=== PATIENT | male | born 1980 | race Hispanic/Latino ===

== ENCOUNTER 2019-03-22 11:31 | Outpatient (CLI) | payer BC ==
[2019-03-22 12:12] LABS: Basophils # (Auto) 0.1 K/mm3 (0.0-0.1); Basophils % (Auto) 0.8 % (0.0-1.8); Eosinophils # (Auto) 0.4 K/mm3 (0.0-0.4); Eosinophils % (Auto) 5.3 % (0.0-4.3); Hematocrit 49.3 % (35.5-45.6); Hemoglobin 16.8 gm/dl (11.8-15.2); Lymphocytes # (Auto) 2.3 K/mm3 (1.2-5.4); Lymphocytes % (Auto) 34.1 % (13.4-35.0); Mean Corpuscular HGB Conc 34 % (32-34); Mean Corpuscular Volume 89 fl (84-94); Monocytes # (Auto) 0.5 K/mm3 (0.0-0.8); Platelet Count 283 K/mm3 (140-440); Red Blood Count 5.57 M/mm3 (3.65-5.03); Red Cell Distribution Width 12.8 % (13.2-15.2)
[2019-03-22 12:39] LABS: Alanine Aminotransferase 48 units/L (7-56); Albumin 4.6 g/dL (3.9-5); BUN/Creatinine Ratio 18; Blood Urea Nitrogen 14 mg/dL (9-20); Calcium 9.6 mg/dL (8.4-10.2); Chol/HDL Ratio 4.53 %; HDL Cholesterol 39 mg/dL (40-59); Hemolysis Index 13; LDL Cholesterol,Direct 130 mg/dL (50-130); Uric Acid 7.6 mg/dL (3.5-7.6)
[2019-03-25 14:16] LABS: Vitamin D, 25-OH, D2 <4 ng/mL
== END 2019-03-22 11:32 | disposition home or self-care (01) ==
LOC: LAB 11:31
PROVIDERS: ATTEND Internal Medicine
DX: Z00.00 Encounter for general adult medical examination without abnormal findings (principal); Z13.1 Encounter for screening for diabetes mellitus; Z13.220 Encounter for screening for lipoid disorders; Z13.29 Encounter for screening for other suspected endocrine disorder; Z13.21 Encounter for screening for nutritional disorder
CPT/HCPCS: 36415; 80053; 80061; 82306; 82607; 83036; 84443; 84550; 85025

== ENCOUNTER 2019-10-28 07:18 | Inpatient (IN) | payer BC ==
--- NOTE | 2019-10-28 07:31 | Event Note ---
Date: 10/28/19 EKG presented to me, shows A. fib with rapid ventricular rate. Nursing team informed that this patient needs to come back to the emergency room immediately for immediate treatment.
[2019-10-28] MEDS ORDERED: dilTIAZem 25 MG/5 ML INJ IV ONE ×2 (07:41→07:55)
[2019-10-28] MEDS ORDERED: LACTATED RINGERS 500 ML IV ONE (07:41)
--- NOTE | 2019-10-28 07:49 | Emergency Department Report ---
ED General Adult HPI - General Chief complaint: Chest Pain Stated complaint: CP PUI?: No Time Seen by Provider: 10/28/19 07:34 Source: patient, RN notes reviewed Mode of arrival: Ambulatory Limitations: No Limitations - History of Present Illness Initial comments: Primary care doctor: Dr Jenni Ruth Past medical history: Hypertension The patient is a 39-year-old gentleman who is not known to myself previously. He presents to the ER today with complaints of chest pressure, palpitations, lightheadedness, generalized weakness. On review of systems, the patient endorses a long trip to [place] last week, where he had slurred speech, facial droop, and right arm numbness/weakness. This lasted for a few minutes, was painless, and resolve spontaneously, and he did not seek medical attention at that time. He denies headache, neck pain, abdominal pain, vomiting blood, defecating blood, irritative and obstructive urinary symptoms, recreational drug use, and neurologic symptoms at this time. Chest pressure, palpitations, lightheadedness present since this morning, constant, do not radiate anywhere, and do not have exacerbating or relieving factors. He denies posterior leg pain and leg swelling. The patient was evaluated in the emergency department for symptoms described in the history of present illness. He/she was evaluated in the context of the global COVID-19 pandemic, which necessitated consideration that the patient might be at risk for infection with the virus that causes COVID-19. Institutional protocols and algorithms that pertain to the evaluation of patients at risk for COVID-19 are in a state of rapid change based on information released by regulatory bodies including the CDC and federal and state organizations. These policies and algorithms were followed during the patient's care in the emergency department. Please note that these policies, procedures and recommendations changed on a rapid basis. -: Sudden Location: face, right, upper extremity Radiation: non-radiation Severity scale (0 -10): 0 Consistency: other (Neurologic symptoms now resolved. Palpitations, chest pressure and lightheadedness constant) Improves with: none Worsens with: none Associated Symptoms: denies other symptoms - Related Data Home Medications Medication Instructions Recorded Confirmed Last Taken No Known Home Medications [No 10/29/19 10/29/19 Unknown Reported Home Medications] Allergies Allergy/AdvReac Type Severity Reaction Status Date / Time ascencio Allergy Swelling,IT Unverified 03/22/19 11:32 SARAH Penicillins Allergy Rash Unverified 03/22/19 11:32 ED Review of Systems ROS: Stated complaint: CP Other details as noted in HPI Constitutional: malaise. denies: fever Eyes: denies: eye discharge, vision change ENT: denies: epistaxis Respiratory: denies: cough Cardiovascular: palpitations. denies: orthopnea Gastrointestinal: denies: abdominal pain, hematemesis, melena, hematochezia Genitourinary: denies: dysuria Musculoskeletal: denies: back pain Neurological: weakness, numbness Hematological/Lymphatic: denies: easy bleeding ED Past Medical Hx - Past Medical History Previous Medical History?: No - Surgical History Past Surgical History?: No - Social History Smoking Status: Never Smoker Substance Use Type: None - Medications Home Medications: Home Medications Medication Instructions Recorded Confirmed Last Taken Type No Known Home Medications [No 10/29/19 10/29/19 Unknown History Reported Home Medications] ED Physical Exam - General Limitations: No Limitations General appearance: alert, anxious, obese - Head Head exam: Present: atraumatic, normocephalic - Eye Eye exam: Present: normal appearance, EOMI. Absent: nystagmus - ENT ENT exam: Present: normal exam, normal orophraynx, mucous membranes moist, normal external ear exam - Neck Neck exam: Present: normal inspection, full ROM. Absent: tenderness, meningismus - Respiratory Respiratory exam: Present: normal lung sounds bilaterally. Absent: respiratory distress, wheezes, rales, rhonchi, stridor, decreased breath sounds - Cardiovascular Cardiovascular Exam: Present: tachycardia, irregular rhythm, normal heart sounds. Absent: systolic murmur, diastolic murmur, rubs, gallop - GI/Abdominal GI/Abdominal exam: Present: soft. Absent: distended, tenderness, guarding, rebound, rigid, pulsatile mass - Rectal Rectal exam: Present: deferred - Extremities Exam Extremities exam: Present: normal inspection, full ROM, other (2+ pulses noted in the bilateral upper and lower extremities. There is no palpable cord. negative Homans sign. Muscular compartments are soft. The pelvis is stable.). Absent: pedal edema, calf tenderness - Back Exam Back exam: Present: normal inspection, full ROM. Absent: tenderness, CVA tenderness (R), CVA tenderness (L), paraspinal tenderness, vertebral tenderness - Neurological Exam Neurological exam: Present: alert, oriented X3, normal gait, other (No facial droop. Tongue midline. Extraocular movements intact bilaterally. Facial sensation intact to light touch in V1, V2, V3 distribution bilaterally. 5 and a 5 strength in 4 extremities. Sensation intact to light touch in 4 extremities.). Absent: motor sensory deficit - Psychiatric Psychiatric exam: Present: anxious - Skin Skin exam: Present: warm, dry, intact, normal color. Absent: rash ED Course Vital Signs 10/28/19 10/28/19 10/28/19 07:31 07:38 07:42 Temperature 98.1 F Pulse Rate 157 H 165 H Respiratory 18 23 18 Rate Blood Pressure Blood Pressure 109/83 [Right] O2 Sat by Pulse 98 95 Oximetry 10/28/19 10/28/19 10/28/19 08:00 08:40 09:00 Temperature Pulse Rate 87 91 H Respiratory 15 17 Rate Blood Pressure 105/77 105/77 105/77 Blood Pressure [Right] O2 Sat by Pulse 97 98 96 Oximetry 10/28/19 10/28/19 10/28/19 09:30 10:00 10:30 Temperature Pulse Rate 90 87 102 H Respiratory 12 18 13 Rate Blood Pressure 105/77 105/77 124/76 Blood Pressure [Right] O2 Sat by Pulse 97 97 98 Oximetry 10/28/19 10/28/19 10/28/19 11:02 11:30 12:00 Temperature Pulse Rate 104 H 109 H 116 H Respiratory 13 13 17 Rate Blood Pressure 124/76 124/76 127/85 Blood Pressure [Right] O2 Sat by Pulse 95 95 98 Oximetry 10/28/19 10/28/19 10/28/19 12:30 13:00 13:30 Temperature Pulse Rate 101 H 90 83 Respiratory 13 20 17 Rate Blood Pressure 120/80 120/80 120/80 Blood Pressure [Right] O2 Sat by Pulse 98 98 97 Oximetry 10/28/19 10/28/19 10/28/19 14:00 14:30 16:06 Temperature Pulse Rate 98 H 81 116 H Respiratory 21 18 17 Rate Blood Pressure 120/80 120/80 120/80 Blood Pressure [Right] O2 Sat by Pulse 95 95 96 Oximetry 10/28/19 10/28/19 10/28/19 16:12 16:30 17:00 Temperature Pulse Rate 117 H 111 H 125 H Respiratory 18 22 Rate Blood Pressure 131/84 131/84 Blood Pressure [Right] O2 Sat by Pulse 97 97 Oximetry 10/28/19 10/28/19 10/28/19 17:30 17:40 17:50 Temperature Pulse Rate 102 H 98 H 104 H Respiratory 19 18 19 Rate Blood Pressure 150/118 150/118 150/118 Blood Pressure [Right] O2 Sat by Pulse 97 96 95 Oximetry 10/28/19 10/28/19 10/28/19 18:00 18:10 18:20 Temperature Pulse Rate 75 90 91 H Respiratory 15 17 16 Rate Blood Pressure 150/118 150/118 150/118 Blood Pressure [Right] O2 Sat by Pulse 97 96 95 Oximetry 10/28/19 10/28/19 10/28/19 18:30 18:40 18:50 Temperature Pulse Rate 86 85 96 H Respiratory 18 23 19 Rate Blood Pressure 150/118 150/118 150/118 Blood Pressure [Right] O2 Sat by Pulse 97 97 94 Oximetry 10/28/19 10/28/19 10/28/19 19:00 19:10 19:20 Temperature Pulse Rate 95 H 75 97 H Respiratory 15 14 13 Rate Blood Pressure 150/118 150/118 150/118 Blood Pressure [Right] O2 Sat by Pulse 93 97 97 Oximetry 10/28/19 10/28/19 10/28/19 19:30 19:40 19:50 Temperature Pulse Rate 90 112 H 121 H Respiratory 14 18 17 Rate Blood Pressure 150/118 150/118 150/118 Blood Pressure [Right] O2 Sat by Pulse 98 96 98 Oximetry 10/28/19 10/28/19 10/28/19 20:00 20:10 20:20 Temperature Pulse Rate 109 H 115 H 130 H Respiratory 18 14 14 Rate Blood Pressure 150/118 140/32 140/32 Blood Pressure [Right] O2 Sat by Pulse 97 98 97 Oximetry 10/28/19 10/28/19 10/28/19 20:30 20:38 20:40 Temperature Pulse Rate 122 H 126 H 128 H Respiratory 16 24 Rate Blood Pressure 140/32 110/75 97/60 Blood Pressure [Right] O2 Sat by Pulse 96 Oximetry 10/28/19 10/28/19 10/28/19 20:50 21:00 21:10 Temperature Pulse Rate 118 H 89 75 Respiratory 24 22 14 Rate Blood Pressure 97/60 97/60 97/60 Blood Pressure [Right] O2 Sat by Pulse 94 95 96 Oximetry 10/28/19 10/28/19 10/28/19 21:20 21:30 21:40 Temperature Pulse Rate 79 69 80 Respiratory 21 20 13 Rate Blood Pressure 97/60 97/60 97/60 Blood Pressure [Right] O2 Sat by Pulse 97 96 98 Oximetry - Reevaluation(s) Reevaluation #1: 10/28/19 07:47 Differential diagnosis, including not limited to: A. fib with RVR, electrolyte derangement, thyroid derangement, structural cardiac disease, pulmonary embolism, TIA Assessment and plan: 39-year-old gentleman presenting with A. fib and RVR. He i s afebrile with reassuring vital signs with the exception of tachycardia. He is mentating appropriately, not diaphoretic, and has an appropriate blood pressure. He does not have crushing or intolerable substernal chest pain. Therefore, he is an acceptable candidate for intravenous diltiazem. In addition, he describes a transient ischemic attack last week. At the moment, his NIH score is 0, he has a GCS of 15, and his examination is not consistent with a large vessel occlusion. Therefore, CT angiogram head and neck not indicated. However, he does endorse a long road trip to [place] last week, therefore, we will send d-dimer to risk stratify for pulmonary embolism, although he is not hypoxic or especially tachypneic. Swallow screen ordered, CT scan of the brain ordered, appropriate laboratory studies ordered. If no intracranial hemorrhage noted, he will be started on systemic anticoagulation. He will require admission to the hospital. I discussed this plan of care with the patient, who verbalized understanding, and who is amenable to this plan of care. We will also discuss with cardiology on-call Reevaluation #2: 10/28/19 07:56 Patient given 20 mg of diltiazem intravenously with myself present at the bedside. Heart rate decreased to 110 through 130 bpm. An additional 10 mg of diltiazem was administered, heart rate decreased to 105 bpm through 116 bpm. Additional 10 mg of diltiazem given, total cumulative dose at this time 40 mg intravenous, heart rate now in the 70s to 80s, blood pressure stable, patient endorses improvement. Oral diltiazem is ordered. Reevaluation #3: 10/28/19 08:54 Heart rate in the 90s at this time. Still in A. fib. CT scan of the brain negative to my view/interpretation, formal radiology interpretation is pending. Patient updated on plan of care. Laboratory studies reviewed and appreciated. Cardiology consultation is pending. Hospital physician, Dr. Jeffry Rudolph to admit Reevaluation #4: 10/28/19 09:43 CT scan of the brain is negative for acute findings. - Consultations Consultation #1: 10/28/19 09:55 Discussed history, physical, pertinent laboratory studies, radiology studies and CT scan findings with cardiology on-call, Dr. Mabry, they will follow in consultation. ED Medical Decision Making - Lab Data Result diagrams: 10/31/19 07:39 10/31/19 07:39 Vital Signs 10/28/19 10/28/19 07:31 07:38 Temperature 98.1 F Pulse Rate 157 H 165 H Respiratory 18 23 Rate Blood Pressure 109/83 [Right] O2 Sat by Pulse 98 Oximetry Labs 10/28/19 07:41 WBC 7.4 RBC 5.50 H Hgb 16.5 H Hct 48.6 H MCV 88 MCH 30 MCHC 34 RDW 13.2 Plt Count 279 Lymph % (Auto) 35.8 H [place] % (Auto) 9.6 H Eos % (Auto) 5.9 H Baso % (Auto) 1.1 Lymph # 2.7 [place] # 0.7 Eos # 0.4 Baso # 0.1 Seg Neutrophils % 47.6 Seg Neutrophils # 3.5 - EKG Data -: EKG Interpreted by Sc Rate: tachycardia - EKG Data When compared to previous EKG there are: previous EKG unavailable 10/28/19 07:47 EKG shows A. fib, RVR, 157 bpm, normal axis, QTC prolonged, high left ventricular voltage, abnormal EKG, not a STEMI, no prior for comparison - Radiology Data Radiology results: pending, report reviewed, image reviewed Print Report Referring Physician: TOMI CROUCH Patient Name: TARYN STEWARD Date of : 1980 Sex: Male Report Date: 2019-10-28 Report Status: Finalized Findings [facility] [address] [place] [address] XRay Report Signed Patient: TARYN STEWARD MR#: [id number] : 1980 Acct:[id number] Age/Sex: 39 / M ADM Date: 10/28/19 Loc: ED Attending Dr: Ordering Physician: TOMI CROUCH MD Date of Service: 10/28/19 Procedure(s): XR chest 1V ap Accession Number(s): [id number] cc: TOMI CROUCH MD Fluoro Time In Minutes: CHEST 1 VIEW INDICATION / CLINICAL INFORMATION: Chest Pain. COMPARISON: None available. FINDINGS: SUPPORT DEVICES: None. HEART / MEDIASTINUM: No significant abnormality. LUNGS / PLEURA: No significant pulmonary or pleural abnormality. No pneumothorax. ADDITIONAL FINDINGS: No significant additional findings. IMPRESSION: No acute pulmonary or pleural abnormality Signer Name: Grant Jett MD FACR Signed: 10/28/2019 7:53 AM Workstation Name: [id number] Transcribed By: MS Dictated By: Grant Jett MD Electronically Authenticated By: Grant Jett MD Signed Date/Time: 10/28/19752 DD/ 2 TD/TT: Critical Care Time: Yes Critical care time in (mins) excluding proc time.: 35 Critical care attestation.: If time is entered above; I have spent that time in minutes in the direct care of this critically ill patient, excluding procedure time. ED Disposition Clinical Impression: TIA (transient ischemic attack), Atrial fibrillation with rapid ventricular response Disposition: OP ADMIT IP TO THIS HOSP Is pt being admited?: Yes Condition: Serious
--- NOTE | 2019-10-28 07:58 | XRay Report ---
CHEST 1 VIEW INDICATION / CLINICAL INFORMATION: Chest Pain. COMPARISON: None available. FINDINGS: SUPPORT DEVICES: None. HEART / MEDIASTINUM: No significant abnormality. LUNGS / PLEURA: No significant pulmonary or pleural abnormality. No pneumothorax. ADDITIONAL FINDINGS: No significant additional findings. IMPRESSION: No acute pulmonary or pleural abnormality Signer Name: Grant Jett MD FACR Signed: 10/28/2019 7:53 AM Workstation Name: [id number]
[2019-10-28] MEDS: dilTIAZem 30 MG TAB PO ONE ×2 (07:59→08:11)
[2019-10-28 08:06] LABS: Basophils # (Auto) 0.1 K/mm3 (0.0-0.1); Basophils % (Auto) 1.1 % (0.0-1.8); Eosinophils # (Auto) 0.4 K/mm3 (0.0-0.4); Eosinophils % (Auto) 5.9 % (0.0-4.3); Hematocrit 48.6 % (35.5-45.6); Hemoglobin 16.5 gm/dl (11.8-15.2); Lymphocytes # (Auto) 2.7 K/mm3 (1.2-5.4); Lymphocytes % (Auto) 35.8 % (13.4-35.0); Mean Corpuscular HGB Conc 34 % (32-34); Mean Corpuscular Volume 88 fl (84-94); Monocytes # (Auto) 0.7 K/mm3 (0.0-0.8); Monocytes % (Auto) 9.6 % (0.0-7.3); Platelet Count 279 K/mm3 (140-440); Red Cell Distribution Width 13.2 % (13.2-15.2)
[2019-10-28 08:17] LABS: INR 0.98 (0.87-1.13)
[2019-10-28 08:18] LABS: Partial Thromboplastin Time 27.8 Sec. (24.2-36.6)
[2019-10-28 08:31] LABS: BUN/Creatinine Ratio 18; Blood Urea Nitrogen 14 mg/dL (9-20); Calcium 9.2 mg/dL (8.4-10.2); Hemolysis Index 9
--- NOTE | 2019-10-28 08:57 | Cat Scan Report ---
NONENHANCED CT SCAN OF THE HEAD: INDICATION / CLINICAL INFORMATION: 39 years Male; tia. TECHNIQUE: Routine CT head without contrast. All CT scans at this location are performed using CT dos e reduction for ALARA by means of automated exposure control. COMPARISON: None. FINDINGS: BRAIN / INTRACRANIAL CONTENTS: No acute hemorrhage, mass effect, midline shift, hydrocephalus, or acu te, large territorial infarct. No chronic infarct or focal atrophy. Normal brain volume and ventricul ar/sulcal size for age. No significant white matter abnormality. CRANIOCERVICAL JUNCTION: No significant abnormality. ORBITS: No significant abnormality of visualized orbits. SINUSES / MASTOIDS: No significant abnormality of the visualized paranasal sinuses or mastoid air luz ls. ADDITIONAL FINDINGS: None. IMPRESSION: Normal nonenhanced CT scan of the brain. Signer Name: Gabbi Whitehead MD Signed: 10/28/2019 8:53 AM Workstation Name: [id number]
[2019-10-28] MEDS ORDERED: ENOXAPARIN 100 MG/1 ML INJ SUB-Q STA (09:43)
[2019-10-28] MEDS ORDERED: ACETAMINOPHEN 325 MG TAB PO PRN (09:51)
[2019-10-28] MEDS ORDERED: ACETAMINOPHEN 325 MG TAB ONE (09:56)
--- NOTE | 2019-10-28 10:57 | Consultation ---
History of Present Illness Consult date: 10/28/19 Requesting physician: TOMI CROUCH Consult reason: atrial fibrillation History of present illness: The patient is a 39-year-old male with a past medical history of HTN. He is previously unknown to our practice. His PCP is Dr Jenni Ruth. He presented with c/o chest pressure, palpitations, lightheadedness, generalized weakness since this morning. The patient also reports a long trip to [place] last week, where he had slurred speech, facial droop, and right arm numbness/weakness. This lasted for a few minutes, was painless, and resolve spontaneously, and he did not seek medical attention at that time. Following arrival to ED, pt found to be in atrial fibrillation and thus cardiology has been consulted. Pt denies any prior known cardiac issues, including CAD, AMI, HF or arrhythmia. Past History Past Medical History: hypertension Social history: denies: smoking, alcohol abuse, prescription drug abuse Medications and Allergies Allergies Allergy/AdvReac Type Severity Reaction Status Date / Time ascencio Allergy Swelling,IT Unverified 03/22/19 11:32 SARAH Penicillins Allergy Rash Unverified 03/22/19 11:32 Active Meds: Active Medications Acetaminophen (Tylenol) 650 mg PO Q6HR PRN PRN Reason: PAIN Last Admin: 10/28/19 09:56 Dose: 650 mg Documented by: Enoxaparin Sodium (Enoxaparin) 130 mg SUB-Q ONCE ONE Stop: 10/28/19 11:01 Review of Systems Constitutional: weakness, no weight loss, no weight gain, no fever, no chills, no sweats Ears, nose, mouth and throat: no ear pain, no nose pain, no sinus pressure, no sinus pain Cardiovascular: chest pain, palpitations, lightheadedness, high blood pressure, no orthopnea, no edema, no syncope, no shortness of breath, no dyspnea on exertion, no leg edema Respiratory: no cough, no shortness of breath, no dyspnea on exertion, no congestion, no wheezing, no pain on inspiration Gastrointestinal: no abdominal pain, no nausea, no vomiting, no diarrhea, no co nstipation, no change in bowel habits Genitourinary Male: no dysuria, no hematuria, no flank pain, no discharge, no urinary frequency, no urinary hesitancy Musculoskeletal: no neck stiffness, no neck pain, no shooting arm pain, no arm numbness/tingling, no low back pain, no shooting leg pain Integumentary: no rash, no pruritis, no redness, no sores, no wounds Neurological: weakness (generalized), no head injury, no paralysis, no seizures, no syncope Psychiatric: no anxiety Endocrine: no cold intolerance, no heat intolerance Hematologic/Lymphatic: no easy bruising, no easy bleeding Allergic/Immunologic: no urticaria Physical Examination Vital Signs Temp Pulse Resp BP 98.1 F 157 H 18 109/83 10/28/19 07:31 10/28/19 07:31 10/28/19 07:31 10/28/19 07:31 General appearance: no acute distress HEENT: Positive: PERRL, Normocephaly, Mucus Membranes Moist Neck: Positive: neck supple, trachea midline Cardiac: Positive: irregularly irregular, S1/S2 Lungs: Positive: Decreased Breath Sounds Neuro: Positive: Grossly Intact Abdomen: Negative: Tender Skin: Negative: Rash Musculoskeletal: No Pain Extremities: Absent: edema Results 10/28/19 07:41 10/28/19 07:41 Coagulation 10/28/19 Range/Units 07:41 PT 13.1 (12.2-14.9) Sec. INR 0.98 (0.87-1.13) APTT 27.8 (24.2-36.6) Sec. CBC 10/28/19 Range/Units 07:41 WBC 7.4 (4.5-11.0) K/mm3 RBC 5.50 H (3.65-5.03) M/mm3 Hgb 16.5 H (11.8-15.2) gm/dl Hct 48.6 H (35.5-45.6) % Plt Count 279 (140-440) K/mm3 Lymph # 2.7 (1.2-5.4) K/mm3 Power # 0.7 (0.0-0.8) K/mm3 Eos # 0.4 (0.0-0.4) K/mm3 Baso # 0.1 (0.0-0.1) K/mm3 Comprehensive Metabolic Panel 10/28/19 Range/Units 07:41 Sodium 139 (137-145) mmol/L Potassium 4.3 (3.6-5.0) mmol/L Chloride 106.4 (98-107) mmol/L Carbon Dioxide 19 L (22-30) mmol/L BUN 14 (9-20) mg/dL Creatinine 0.8 (0.8-1.3) mg/dL Glucose 129 H (75-100) mg/dL Calcium 9.2 (8.4-10.2) mg/dL - Imaging and Cardiology Echo: pending EKG: report reviewed, image reviewed EKG interpretations - Telemetry EKG Rhythm: Atrial Fibrillation - EKG Supraventricular dysrhythmia: atrial fibrillation Assessment and Plan Pt noted to be in new onset AFib with RVR, he was given IV cardizem and currently has HR WNL. Initiate PO cardizem and cont full dosage lovenox BID. Plan for conversion to NOAC prior to discharge. Obtain echo. Cont to monitor closely on telemetry. Pt does report intermittent snoring, suspect NGHIA. Recommend OP sleep study. Will follow. The patient has been seen in conjunction with Dr. Nayana Mabry who agrees with the assessment and plan of care. - Patient Problems (1) Atrial fibrillation with rapid ventricular response Current Visit: Yes Status: Acute (2) TIA (transient ischemic attack) Current Visit: Yes Status: Acute Plan to address problem: head CT NAF (3) HTN (hypertension) Current Visit: Yes Status: Chronic (4) Sleep apnea Current Visit: Yes Status: Suspected
[2019-10-28] MEDS ORDERED: ENOXAPARIN 150 MG/1 ML INJ SUB-Q ONE (11:00)
[2019-10-28] MEDS ORDERED: METOCLOPRAMIDE 10 MG/2 ML INJ ONE (12:27)
[2019-10-28] MEDS ORDERED: diphenhydrAMINE 50 MG/ML VIAL ONE (12:27)
[2019-10-28] MEDS ORDERED: dilTIAZem 30 MG TAB ONE ×2 (16:09→20:36)
[2019-10-28] MEDS: dilTIAZem 60 MG TAB PO SCH ×2 (16:12→20:38)
--- NOTE | 2019-10-28 16:23 | History and Physical Report ---
History of Present Illness Date of examination: 10/28/19 Date of admission: 10/28/19 08:55 Chief complaint: Chest pressure and palpitation since a.m. History of present illness: 39-year-old male with history of hypertension comes in for chest pressure palpitations lightheadedness and generalized weakness. This is been going on for since a.m. Patient also had slurred speech facial droop and right arm numbness but no weakness week ago when he went to [place]. Review seek any medical attention. No diaphoresis. No shortness of breath. Chest pressure is about 4 on a scale of 1-10. No radiation. No prior episodes of chest pressure. No exposure to coronavirus. - Past Medical History Htn - Surgical History Past Surgical History?: No - Social History Smoking Status: Never Smoker Substance Use Type: None Family history Htn Review of Systems ROS: Stated complaint: CP Other details as noted in HPI Constitutional: malaise. denies: fever Eyes: denies: eye discharge, vision change ENT: denies: epistaxis Respiratory: denies: cough Cardiovascular: palpitations. denies: orthopnea Gastrointestinal: denies: abdominal pain, hematemesis, melena, hematochezia Genitourinary: denies: dysuria Musculoskeletal: denies: back pain Neurological: weakness, numbness Hematological/Lymphatic: denies: easy bleeding Past History Past Medical History: hypertension Social history: denies: smoking, alcohol abuse, prescription drug abuse Medications and Allergies Allergies Allergy/AdvReac Type Severity Reaction Status Date / Time ascencio Allergy Swelling,IT Unverified 03/22/19 11:32 SARAH Penicillins Allergy Rash Unverified 03/22/19 11:32 Home Medications Medication Instructions Recorded Confirmed Last Taken Type No Known Home Medications [No 10/29/19 10/29/19 Unknown History Reported Home Medications] Active Meds: Active Medications Acetaminophen (Tylenol) 650 mg PO Q6HR PRN PRN Reason: PAIN Last Admin: 10/28/19 09:56 Dose: 650 mg Documented by: Diltiazem HCl (Cardizem) 60 mg PO TID FILOMENA Enoxaparin Sodium (Enoxaparin) 100 mg SUB-Q Q12HR [facility] Exam - Constitutional Vitals: Temp Pulse Resp BP Pulse Ox 98.1 F 81 18 120/80 95 10/28/19 07:31 10/28/19 14:30 10/28/19 14:30 10/28/19 14:30 10/28/19 14:30 General appearance: Present: mild distress, well-nourished - EENT Eyes: Present: PERRL ENT: hearing intact, clear oral mucosa - Neck Neck: Present: supple, normal ROM - Respiratory Respiratory effort: normal Respiratory: bilateral: CTA - Cardiovascular Heart rate: 152 Rhythm: irregularly irregular Heart Sounds: Present: S1 & S2. Absent: rub, click - Extremities Extremities: no ischemia, pulses symmetrical, No edema Peripheral Pulses: within normal limits - Abdominal General gastrointestinal: Present: soft, non-tender, non-distended, normal bowel sounds Male genitourinary: Present: normal - Integumentary Integumentary: Present: clear, warm, dry - Musculoskeletal Musculoskeletal: gait normal, strength equal bilaterally - Psychiatric Psychiatric: appropriate mood/affect, intact judgment & insight - Neurologic Neurologic: CNII-XII intact, moves all extremities - Allied Health Allied health notes reviewed: nursing, case management HEART Score - HEART Score Troponin: Troponin T < 0.010 ng/mL (0.00-0.029) 10/28/19 07:41 Results - Labs CBC & Chem 7: 10/28/19 07:41 10/28/19 07:41 Labs: Laboratory Last Values WBC 7.4 K/mm3 (4.5-11.0) 10/28/19 07:41 RBC 5.50 M/mm3 (3.65-5.03) H 10/28/19 07:41 Hgb 16.5 gm/dl (11.8-15.2) H 10/28/19 07:41 Hct 48.6 % (35.5-45.6) H 10/28/19 07:41 MCV 88 fl (84-94) 10/28/19 07:41 MCH 30 pg (28-32) 10/28/19 07:41 MCHC 34 % (32-34) 10/28/19 07:41 RDW 13.2 % (13.2-15.2) 10/28/19 07:41 Plt Count 279 K/mm3 (140-440) 10/28/19 07:41 Lymph % (Auto) 35.8 % (13.4-35.0) H 10/28/19 07:41 [place] % (Auto) 9.6 % (0.0-7.3) H 10/28/19 07:41 Eos % (Auto) 5.9 % (0.0-4.3) H 10/28/19 07:41 Baso % (Auto) 1.1 % (0.0-1.8) 10/28/19 07:41 Lymph # 2.7 K/mm3 (1.2-5.4) 10/28/19 07:41 [place] # 0.7 K/mm3 (0.0-0.8) 10/28/19 07:41 Eos # 0.4 K/mm3 (0.0-0.4) 10/28/19 07:41 Baso # 0.1 K/mm3 (0.0-0.1) 10/28/19 07:41 Seg Neutrophils % 47.6 % (40.0-70.0) 10/28/19 07:41 Seg Neutrophils # 3.5 K/mm3 (1.8-7.7) 10/28/19 07:41 PT 13.1 Sec. (12.2-14.9) 10/28/19 07:41 INR 0.98 (0.87-1.13) 10/28/19 07:41 APTT 27.8 Sec. (24.2-36.6) 10/28/19 07:41 D-Dimer 135.00 ng/mlDDU (0-234) 10/28/19 07:41 Sodium 139 mmol/L (137-145) 10/28/19 07:41 Potassium 4.3 mmol/L (3.6-5.0) 10/28/19 07:41 Chloride 106.4 mmol/L (98-107) 10/28/19 07:41 Carbon Dioxide 19 mmol/L (22-30) L 10/28/19 07:41 Anion Gap 18 mmol/L 10/28/19 07:41 BUN 14 mg/dL (9-20) 10/28/19 07:41 Creatinine 0.8 mg/dL (0.8-1.3) 10/28/19 07:41 Estimated GFR > 60 ml/min 10/28/19 07:41 BUN/Creatinine Ratio 18 % 10/28/19 07:41 Glucose 129 mg/dL (75-100) H 10/28/19 07:41 Calcium 9.2 mg/dL (8.4-10.2) 10/28/19 07:41 Magnesium 2.40 mg/dL (1.7-2.3) H 10/28/19 07:41 Total Creatine Kinase 112 units/L (55-170) 10/28/19 07:41 Troponin T < 0.010 ng/mL (0.00-0.029) 10/28/19 07:41 TSH 2.470 mlU/mL (0.270-4.200) 10/28/19 07:41 Short CBC 10/28/19 Range/Units 07:41 WBC 7.4 (4.5-11.0) K/mm3 Hgb 16.5 H (11.8-15.2) gm/dl Hct 48.6 H (35.5-45.6) % Plt Count 279 (140-440) K/mm3 [facility] 10/28/19 07:41 Sodium 139 Potassium 4.3 Chloride 106.4 Carbon Dioxide 19 L BUN 14 Creatinine 0.8 Glucose 129 H Calcium 9.2 Cardiac Enzymes 10/28/19 10/28/19 Range/Units 07:41 07:41 Total Creatine Kinase 112 (55-170) units/L Troponin T < 0.010 (0.00-0.029) ng/mL Short CBC 10/28/19 10/29/19 Range/Units 07:41 06:56 WBC 7.4 5.4 (4.5-11.0) K/mm3 Hgb 16.5 H 15.8 H (11.8-15.2) gm/dl Hct 48.6 H 46.3 H (35.5-45.6) % Plt Count 279 238 (140-440) K/mm3 [facility] 10/28/19 07:41 Sodium 139 Potassium 4.3 Chloride 106.4 Carbon Dioxide 19 L BUN 14 Creatinine 0.8 Glucose 129 H Calcium 9.2 Cardiac Enzymes 10/28/19 10/28/19 10/29/19 Range/Units 07:41 07:41 00:11 Total Creatine Kinase 112 (55-170) units/L Troponin T < 0.010 < 0.010 (0.00-0.029) ng/mL - Imaging and Cardiology EKG: report reviewed (A. fib with the RVR heart rate of 150/min) Marie/IV: IV Catheter Type [Right INT / Saline Lock Antecubital] Assessment and Plan Advance Directives: Yes (Full code) VTE prophylaxis?: Chemical Plan of care discussed with patient/family: Yes - Patient Problems (1) Atrial fibrillation with rapid ventricular response Current Visit: Yes Status: Acute Plan to address problem: Patient initiated on IV Cardizem bolus and p.o. Cardizem Heart rate is coming down Echocardiogram ordered Lovenox at 130 mg subcu every 12 started by cardiology (2) Chest pressure Current Visit: Yes Status: Acute Plan to address problem: Chest pain work-up Serial troponins Lexiscan in a.m. (3) HTN (hypertension) Current Visit: Yes Status: Chronic Qualifiers: Hypertension type: essential hypertension Qualified Code(s): I10 - Essential (primary) hypertension Plan to address problem: Continue diltiazem 60 mg every 8 (4) TIA (transient ischemic attack) Current Visit: Yes Status: Acute Plan to address problem: By history TIA 1 week ago which has resolved MRI and carotid duplex scan ordered Echocardiogram was ordered by cardiology for the atrial fibrillation (5) DVT prophylaxis Current Visit: Yes Status: Acute Plan to address problem: On Lovenox and GI prophylaxis
[2019-10-28] MEDS ORDERED: SODIUM CHLORIDE 0.9% 1000 ML 1,000 ML IV ONE (20:51)
[2019-10-28] MEDS ORDERED: SODIUM CHLORIDE 0.9% 1000 ML 1,000 ML ONE (20:53)
[2019-10-28] MEDS ORDERED: METOCLOPRAMIDE 10 MG/2 ML INJ IV PRN (20:55)
[2019-10-28] MEDS ORDERED: ONDANSETRON 4 MG/2 ML INJ IV PRN (20:55)
[2019-10-28] MEDS ORDERED: D5W/0.9% NACL 1,000 ML IV SCH (21:00)
[2019-10-28] MEDS: FAMOTIDINE 20 MG TAB PO SCH (22:05)
[2019-10-28] MEDS: oxyCODONE /ACETAMINOPHEN 5-325MG TAB PO PRN (22:05)
[2019-10-28] MEDS: ENOXAPARIN 100 MG/1 ML INJ SUB-Q SCH (22:05)
[2019-10-29 07:36] LABS: Basophils # (Auto) 0.1 K/mm3 (0.0-0.1); Basophils % (Auto) 1.1 % (0.0-1.8); Eosinophils # (Auto) 0.3 K/mm3 (0.0-0.4); Eosinophils % (Auto) 5.8 % (0.0-4.3); Hematocrit 46.3 % (35.5-45.6); Hemoglobin 15.8 gm/dl (11.8-15.2); Lymphocytes # (Auto) 2.3 K/mm3 (1.2-5.4); Lymphocytes % (Auto) 41.8 % (13.4-35.0); Mean Corpuscular HGB Conc 34 % (32-34); Mean Corpuscular Volume 90 fl (84-94); Monocytes # (Auto) 0.5 K/mm3 (0.0-0.8); Monocytes % (Auto) 8.7 % (0.0-7.3); Platelet Count 238 K/mm3 (140-440); Red Blood Count 5.16 M/mm3 (3.65-5.03)
[2019-10-29 08:00] LABS: Alanine Aminotransferase 42 units/L (7-56); Albumin 3.8 g/dL (3.9-5); BUN/Creatinine Ratio 18; Blood Urea Nitrogen 16 mg/dL (9-20); Calcium 8.7 mg/dL (8.4-10.2); Hemolysis Index 27
[2019-10-29] MEDS ORDERED: REGADENOSON 0.4 MG/5 ML INJ IV ONE ×2 (08:09→08:12)
--- NOTE | 2019-10-29 08:35 | Treadmill Report ---
LEXISCAN STRESS TEST REPORT REASON FOR STUDY: Chest pain. STRESS TEST PROTOCOL: The patient received 0.4 mg of Lexiscan intravenously over 10 seconds. Tc-99m Tetrofosmin was subsequently injected. Baseline ECG: normal sinus rhythm. Lexiscan ECG: no ischemic changes. No chest pain. No arrhythmias. IMPRESSION: Electrocardiographically negative stress test. Nuclear imaging report to follow. JOB# [id number] ABY/MARLENA PAYTON
[2019-10-29] MEDS: dilTIAZem 60 MG TAB PO SCH ×3 (09:15→21:41)
[2019-10-29] MEDS: FAMOTIDINE 20 MG TAB PO SCH ×2 (09:15→21:42)
[2019-10-29] MEDS: ENOXAPARIN 100 MG/1 ML INJ SUB-Q SCH ×2 (09:15→21:42)
[2019-10-29] MEDS: oxyCODONE /ACETAMINOPHEN 5-325MG TAB PO PRN ×2 (09:25→21:54)
--- NOTE | 2019-10-29 10:07 | Progress Note ---
Assessment and Plan Echo reviewed - EF 55-60%, mild LVH, trace TR, trace MR. Dutta MPI stress test noted to be abnormal. Full report to follow. Plan for LHC Thursday. NPO after midnight Thursday. Will revisit initiation of Eliquis following LHC. D/c PO Cardizem. Initiate Toprol 25mg qDay. D/c home Lisinopril. Plan for outpatient sleep evaluation in the setting of suspected NGHIA. Pt seen in conjunction with Dr. Novoa, who agrees with the assessment and plan of care. - Patient Problems (1) Chest pressure Current Visit: Yes Status: Acute (2) PAF (paroxysmal atrial fibrillation) Current Visit: Yes Status: Acute (3) TIA (transient ischemic attack) Current Visit: No Status: Chronic (4) HTN (hypertension) Current Visit: Yes Status: Chronic Qualifiers: Hypertension type: essential hypertension Qualified Code(s): I10 - Essential (primary) hypertension (5) Sleep apnea Current Visit: Yes Status: Suspected Qualifiers: Sleep apnea type: obstructive Qualified Code(s): G47.33 - Obstructive sleep apnea (adult) (pediatric) Subjective Date of service: 10/29/19 Principal diagnosis: Chest Pain Interval history: Pt resting comfortably in bed upon exam. He denies chest pain or any additional cardiac complaints this AM. Tele reviewed - NSR 70-90s w/no acute events noted. No further evidence of AF since admission. Objective Vital Signs - 12hr 10/28/19 10/28/19 10/28/19 22:04 22:05 22:12 Temperature Pulse Rate Respiratory 18 20 Rate Blood Pressure 97/60 O2 Sat by Pulse Oximetry 10/29/19 10/29/19 10/29/19 03:55 07:43 08:07 Temperature 97.6 F Pulse Rate 70 70 Respiratory 18 Rate Blood Pressure 83/53 138/84 O2 Sat by Pulse 95 Oximetry 10/29/19 10/29/19 10/29/19 08:17 08:19 08:20 Temperature Pulse Rate Respiratory Rate Blood Pressure 114/82 113/81 119/83 O2 Sat by Pulse Oximetry 10/29/19 10/29/19 10/29/19 08:21 08:23 08:24 Temperature Pulse Rate Respiratory Rate Blood Pressure 124/77 120/74 122/87 O2 Sat by Pulse Oximetry 10/29/19 09:37 Temperature 98.1 F Pulse Rate 84 Respiratory 18 Rate Blood Pressure 114/81 O2 Sat by Pulse 97 Oximetry - Physical Examination General: No Apparent Distress HEENT: Positive: EOMI, Normocephaly, Mucus Membranes Moist Neck: Positive: neck supple, trachea midline. Negative: JVD/HJR Cardiac: Positive: Reg Rate and Rhythm, S1/S2 Lungs: Positive: clear to auscultation (bilaterally) Neuro: Positive: Grossly Intact Abdomen: Positive: Soft, Active Bowel Sounds. Negative: Tender Skin: Negative: Rash, Wound Musculoskeletal: No Fluid Collection, No Pain, Normal Range of Motion Extremities: Present: upper extr. pulses, lower extr. pulses. Absent: edema - Labs and Meds Cardiac Enzymes 10/29/19 Range/Units 06:56 AST 22 (5-40) units/L CBC 10/29/19 Range/Units 06:56 WBC 5.4 (4.5-11.0) K/mm3 RBC 5.16 H (3.65-5.03) M/mm3 Hgb 15.8 H (11.8-15.2) gm/dl Hct 46.3 H (35.5-45.6) % Plt Count 238 (140-440) K/mm3 Lymph # 2.3 (1.2-5.4) K/mm3 [place] # 0.5 (0.0-0.8) K/mm3 Eos # 0.3 (0.0-0.4) K/mm3 Baso # 0.1 (0.0-0.1) K/mm3 Comprehensive Metabolic Panel 10/29/19 Range/Units 06:56 Sodium 139 (137-145) mmol/L Potassium 4.0 (3.6-5.0) mmol/L Chloride 104.4 (98-107) mmol/L Carbon Dioxide 24 (22-30) mmol/L BUN 16 (9-20) mg/dL Creatinine 0.9 (0.8-1.3) mg/dL Glucose 121 H (75-100) mg/dL Calcium 8.7 (8.4-10.2) mg/dL AST 22 (5-40) units/L ALT 42 (7-56) units/L Alkaline Phosphatase 50 (35-129) units/L Total Protein 6.6 (6.3-8.2) g/dL Albumin 3.8 L (3.9-5) g/dL - Imaging and Cardiology EKG: report reviewed, image reviewed Pharmacologic stress test: report reviewed Echo: report reviewed - Telemetry EKG Rhythm: Sinus Rhythm - EKG Sinus rhythms and dysrhythmias: sinus rhythm
--- NOTE | 2019-10-29 10:59 | Treadmill Report ---
THALLIUM REPORT REASON FOR STUDY: Chest pain. IMAGING PROTOCOL: The patient received 10 mCi of Tc-99m Tetrofosmin for rest imaging and 28 mCi of Tc-99m Tetrofosmin for stress imaging. Imaging for all procedures was completed 30-90 minutes following the initial injection of Technetium 99m Tetrofosmin. SPECT imaging in the 180 degree arc was performed in the right anterior oblique projection. Computerized reconstruction of the images was performed for analysis. NUCLEAR IMAGING RESULTS: Normal left ventricular cavity size with no change from stress to rest. Distribution of radionuclide within the left ventricle revealed a medium-sized area of photo-induction involving the inferior and inferoapical region. The degree of photon reduction is moderate. Rest imaging showed partial improvement in this defect. Gated SPECT imaging revealed normal global LV systolic function with no significant wall motion abnormalities. The calculated left ventricular ejection fraction is 63%. IMPRESSION: Medium size, partially reversible inferior and inferoapical defect. Normal global LV systolic function with no significant wall motion abnormalities. EF: 63%. These findings suggest a small area of prior infarction with moderate residual ischemia in the right coronary artery territory. JOB# [id number] ABY/NTS
--- NOTE | 2019-10-29 12:14 | Progress Note ---
Subjective Date of service: 10/29/19 Principal diagnosis: Chest Pain Interval history: 39-year-old male with history of hypertension comes in for chest pressure palpitations lightheadedness and generalized weakness. This is been going on for since a.m. Patient also had slurred speech facial droop and right arm numbness but no weakness week ago when he went to [place]. Review seek any medical attention. No diaphoresis. No shortness of breath. Chest pressure is about 4 on a scale of 1-10. No radiation. No prior episodes of chest pressure. 10/28 patient is alert and oriented and not in any distress. He offers no specific complaints. Denies any chest pain or shortness of breath at this time. Lab results reviewed. Cardiology note and stress test results reviewed Patient is scheduled for [facility] on Thursday Chest pain: [place] was ruled out Chest pain resolved Lexiscan stress test was normal Cardiology note reviewed Hypertension Fair Paroxysmal atrial fibrillation with RVR Cardiology note reviewed Continue low-dose beta-rao Heart rate is well controlled ? 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 States he has no symptoms whatsoever and most likely he thinks he will be positive Objective - Constitutional Vitals: Vital Signs - 12hr 10/29/19 10/29/19 10/29/19 03:55 07:43 08:07 Temperature 97.6 F Pulse Rate 70 70 Respiratory 18 Rate Blood Pressure 83/53 138/84 O2 Sat by Pulse 95 Oximetry 10/29/19 10/29/19 10/29/19 08:17 08:19 08:20 Temperature Pulse Rate Respiratory Rate Blood Pressure 114/82 113/81 119/83 O2 Sat by Pulse Oximetry 10/29/19 10/29/19 10/29/19 08:21 08:23 08:24 Temperature Pulse Rate Respiratory Rate Blood Pressure 124/77 120/74 122/87 O2 Sat by Pulse Oximetry 10/29/19 09:37 Temperature 98.1 F Pulse Rate 84 Respiratory 18 Rate Blood Pressure 114/81 O2 Sat by Pulse 97 Oximetry General appearance: Present: no acute distress, well-nourished - EENT Eyes: PERRL, EOM intact ENT: hearing intact, clear oral mucosa - Neck Neck: supple, normal ROM, no masses or JVD - Respiratory Respiratory effort: normal Respiratory: bilateral: CTA - Cardiovascular Rhythm: regular Heart Sounds: Present: S1 & S2 Extremities: No edema - Gastrointestinal General gastrointestinal: Present: soft, non-tender Rectal Exam: deferred - Genitourinary Male genitourinary: deferred - Integumentary Integumentary: clear - Musculoskeletal Musculoskeletal: strength equal bilaterally - Neurologic Neurologic: no focal deficits - Psychiatric Psychiatric: appropriate mood/affect - Labs CBC & Chem 7: 10/29/19 06:56 08 06:56 Labs: Abnormal lab results 10/29/19 10/29/19 10/29/19 Range/Units 06:56 06:56 10:48 RBC 5.16 H (3.65-5.03) M/mm3 Hgb 15.8 H (11.8-15.2) gm/dl Hct 46.3 H (35.5-45.6) % RDW 13.0 L (13.2-15.2) % Lymph % (Auto) 41.8 H (13.4-35.0) % [place] % (Auto) 8.7 H (0.0-7.3) % Eos % (Auto) 5.8 H (0.0-4.3) % Glucose 121 H (75-100) mg/dL POC Glucose 112 H (70-105) Albumin 3.8 L (3.9-5) g/dL HEART Score - HEART Score Troponin: Troponin T < 0.010 ng/mL (0.00-0.029) 10/29/19 06:56
--- NOTE | 2019-10-29 13:33 | Magnetic Resonance Report ---
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 TECHNIQUE: Multiplanar, multisequence MR images of the brain were obtained. COMPARISON: The study is compared to the previous CT of 10/28/2019. FINDINGS: BRAIN / INTRACRANIAL CONTENTS: The brain parenchyma demonstrate appropriate signal characteristics. T he diffusion imaging is unremarkable without evidence of recent infarction. The ventricular system is appropriate in size and configuration. No extra-axial fluid collections or significant mass effect i s identified. CRANIOCERVICAL JUNCTION: No significant abnormality. VASCULAR FLOW-VOIDS: No significant abnormality. ORBITS: No significant abnormality of visualized orbits. SINUSES / MASTOIDS: No significant abnormality in the visualized paranasal sinuses or mastoid air luz ls. ADDITIONAL FINDINGS: None. IMPRESSION: 1. The MRI the brain is unremarkable without evidence of acute infarction. Signer Name: Fabian Desir MD Signed: 10/29/2019 1:28 PM Workstation Name: [id number]
[2019-10-30] MEDS: ENOXAPARIN 100 MG/1 ML INJ SUB-Q SCH ×2 (09:36→21:28)
[2019-10-30] MEDS: METOPROLOL SUCCINATE XL 25 MG TAB PO SCH (09:36)
[2019-10-30] MEDS: FAMOTIDINE 20 MG TAB PO SCH ×2 (09:36→21:28)
[2019-10-30] MEDS: ACETAMINOPHEN 325 MG TAB PO PRN (09:36)
[2019-10-30] MEDS: ASPIRIN 81 MG TAB CHEW PO SCH (09:36)
--- NOTE | 2019-10-30 10:09 | Progress Note ---
Assessment and Plan For CATH in am. - Patient Problems (1) Atrial fibrillation with rapid ventricular response Current Visit: Yes Status: Resolved (2) Chest pressure Current Visit: Yes Status: Acute (3) Abnormal stress test Current Visit: Yes Status: Acute (4) TIA (transient ischemic attack) Current Visit: Yes Status: Acute (5) HTN (hypertension) Current Visit: Yes Status: Chronic Qualifiers: Hypertension type: essential hypertension Qualified Code(s): I10 - Essential (primary) hypertension (6) Sleep apnea Current Visit: Yes Status: Suspected Qualifiers: Sleep apnea type: obstructive Qualified Code(s): G47.33 - Obstructive sleep apnea (adult) (pediatric) Subjective Date of service: 10/30/19 Principal diagnosis: Chest Pain, New onset AF with RVR, TIA Interval history: No complaint. We have discussed his abnormal stress test and the need for coronary angiography. In NSR. Objective Vital Signs Temp Pulse Resp BP Pulse Ox 10/30/19 08:30 68 10/30/19 05:08 97.7 F 68 18 117/79 95 10/30/19 00:34 97.7 F 80 18 111/72 96 10/29/19 22:36 73 10/29/19 21:41 72 112/68 10/29/19 20:36 98.6 F 80 18 127/92 98 10/29/19 17:20 98.2 F 72 18 112/68 93 10/29/19 16:54 80 10/29/19 13:11 98.0 F 80 18 116/74 96 - Physical Examination General: No Apparent Distress HEENT: Positive: EOMI, Normocephaly, Mucus Membranes Moist Neck: Positive: neck supple, trachea midline. Negative: JVD/HJR Cardiac: Positive: Reg Rate and Rhythm, S1/S2 Lungs: Positive: clear to auscultation Neuro: Positive: Grossly Intact Abdomen: Positive: Soft, Active Bowel Sounds. Negative: Tender Skin: Negative: Rash Musculoskeletal: Normal Range of Motion Extremities: Absent: edema - Telemetry EKG Rhythm: Sinus Rhythm - EKG Sinus rhythms and dysrhythmias: sinus rhythm
--- NOTE | 2019-10-30 12:23 | Progress Note ---
Subjective Date of service: 10/30/19 Principal diagnosis: Chest Pain, New onset AF with RVR, TIA Interval history: 39-year-old male with history of hypertension comes in for chest press ure palpitations lightheadedness and generalized weakness. This is been going on for since a.m. Patient also had slurred speech facial droop and right arm numbness but no weakness week ago when he went to [place]. Review seek any medical attention. No diaphoresis. No shortness of breath. Chest pressure is about 4 on a scale of 1-10. No radiation. No prior episodes of chest pressure. 10/28 patient is alert and oriented and not in any distress. He offers no specific complaints. Denies any chest pain or shortness of breath at this time. Lab results reviewed. Cardiology note and stress test results reviewed Patient is scheduled for LHC on Sunday 10/29 patient is alert and oriented and offers no specific complaints, denies chest pain or shortness of breath Cardiology note reviewed Scheduled for left heart catheterization tomorrow Chest pain: [place] was ruled out Chest pain resolved Lexiscan stress test results reviewed Abnormal with partially reversible inferior and inferoapical defect Cardiology note reviewed For LHC in a.m. Hypertension Fair Paroxysmal atrial fibrillation with RVR-resolved Cardiology note reviewed Continue low-dose beta-rao Heart rate is well controlled ? 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 States he has no symptoms whatsoever and most likely he thinks he will be positive Objective - Constitutional Vitals: Vital Signs - 12hr 10/30/19 10/30/19 10/30/19 00:34 05:08 08:30 Temperature 97.7 F 97.7 F Pulse Rate 80 68 68 Respiratory 18 18 Rate Blood Pressure 111/72 117/79 O2 Sat by Pulse 96 95 Oximetry General appearance: Present: no acute distress, well-nourished - EENT Eyes: PERRL, EOM intact ENT: hearing intact, clear oral mucosa - Neck Neck: supple, normal ROM, no masses or JVD - Respiratory Respiratory effort: normal Respiratory: bilateral: CTA - Cardiovascular Rhythm: regular Heart Sounds: Present: S1 & S2 Extremities: No edema - Gastrointestinal General gastrointestinal: Present: soft, non-tender Rectal Exam: deferred - Genitourinary Male genitourinary: deferred - Integumentary Integumentary: clear - Musculoskeletal Musculoskeletal: strength equal bilaterally - Neurologic Neurologic: CNII-XII intact, no focal deficits - Psychiatric Psychiatric: appropriate mood/affect - Labs CBC & Chem 7: 10/29/19 06:56 10/29/19 06:56 HEART Score - HEART Score Troponin: Troponin T < 0.010 ng/mL (0.00-0.029) 10/29/19 06:56
[2019-10-30] MEDS: oxyCODONE /ACETAMINOPHEN 5-325MG TAB PO PRN (21:28)
[2019-10-31] MEDS ORDERED: HEPARIN/NS 5000 UNIT/500ML 1,000 ML IR ONE (08:26)
[2019-10-31] MEDS ORDERED: NITROGLYCERIN SYRINGE 3 ML ONE (08:27)
[2019-10-31 08:29] LABS: Basophils % (Auto) 0.8 % (0.0-1.8); Eosinophils # (Auto) 0.2 K/mm3 (0.0-0.4); Eosinophils % (Auto) 5.2 % (0.0-4.3); Hematocrit 45.8 % (35.5-45.6); Hemoglobin 15.7 gm/dl (11.8-15.2); Lymphocytes # (Auto) 1.8 K/mm3 (1.2-5.4); Lymphocytes % (Auto) 38.6 % (13.4-35.0); Mean Corpuscular HGB Conc 34 % (32-34); Mean Corpuscular Volume 88 fl (84-94); Monocytes # (Auto) 0.5 K/mm3 (0.0-0.8); Monocytes % (Auto) 9.5 % (0.0-7.3); Platelet Count 224 K/mm3 (140-440); Red Cell Distribution Width 12.8 % (13.2-15.2)
[2019-10-31] MEDS ORDERED: SODIUM CHLORIDE 0.9% 500 ML 500 ML ONE (08:33)
[2019-10-31] MEDS ORDERED: ASPIRIN 81 MG TAB CHEW ONE (08:39)
[2019-10-31] MEDS: ASPIRIN 81 MG TAB CHEW PO SCH ×2 (08:41→12:35)
[2019-10-31] MEDS: SODIUM CHLORIDE 0.9% 500 ML 500 ML IV SCH ×2 (08:45→09:12)
[2019-10-31 08:55] LABS: BUN/Creatinine Ratio 14; Blood Urea Nitrogen 14 mg/dL (9-20); Calcium 9.7 mg/dL (8.4-10.2); Hemolysis Index 3
[2019-10-31] MEDS: fentaNYL 100 MCG/2 ML INJ ONE ×2 (09:09→09:13)
[2019-10-31] MEDS: MIDAZOLAM 2 MG/2 ML INJ ONE ×2 (09:10→09:13)
[2019-10-31] MEDS: LIDOCAINE (2%) 20 MG/1 ML VIAL 20 ML MDV INFILTRATI ONE ×2 (09:10→09:14)
[2019-10-31] MEDS: HEPARIN 10,000 UNITS/10 ML VIAL ONE ×3 (09:11→09:16)
[2019-10-31] MEDS: VERAPAMIL 5 MG/2 ML INJ ONE ×2 (09:12→09:16)
--- NOTE | 2019-10-31 09:41 | Progress Note ---
Assessment and Plan [facility] revealed no significant coronary disease. Full report to follow. Continue bASA. Continue PO Toprol 25mg qDay. Currently stable cardiac status. Pt may be discharged from a Cardiology standpoint. Follow-up with Dr. Novoa in our [place] office on 12/01/2019 @ 2:45pm ([phone]). Also recommend outpatient Pulm consult/sleep eval in the setting of suspected NGHIA. Pt seen in conjunction with Dr. Pollard, who agrees with the assessment and plan of care. - Patient Problems (1) Chest pressure Current Visit: Yes Status: Resolved (2) PAF (paroxysmal atrial fibrillation) Current Visit: Yes Status: Chronic (3) TIA (transient ischemic attack) Current Visit: Yes Status: Acute (4) HTN (hypertension) Current Visit: Yes Status: Chronic Qualifiers: Hypertension type: essential hypertension Qualified Code(s): I10 - Essential (primary) hypertension (5) Sleep apnea Current Visit: Yes Status: Suspected Qualifiers: Sleep apnea type: obstructive Qualified Code(s): G47.33 - Obstructive sleep apnea (adult) (pediatric) (6) History of 2019 novel coronavirus disease (COVID-19) Current Visit: Yes Status: Resolved Subjective Date of service: 10/31/19 Principal diagnosis: Chest Pain, New onset AF with RVR, TIA Interval history: S/p [facility] this AM - pt tolerated well. No further episodes of chest pain. Pt denies any additional cardiac complaints. Tele reviewed - NSR 70-90s w/no acute events noted. No further evidence of AF since admission. Objective Last Vital Signs Temp 97.7 F 10/31/19 07:30 Pulse 71 10/31/19 07:30 Resp 20 10/31/19 07:30 BP 130/79 10/31/19 07:30 Pulse Ox 94 10/31/19 07:30 - Physical Examination General: No Apparent Distress HEENT: Positive: EOMI, Normocephaly, Mucus Membranes Moist Neck: Positive: neck supple, trachea midline. Negative: JVD/HJR Cardiac: Positive: Reg Rate and Rhythm, S1/S2 Lungs: Positive: clear to auscultation (bilaterally) Neuro: Positive: Grossly Intact Abdomen: Positive: Soft, Active Bowel Sounds. Negative: Tender Skin: Negative: Rash, Wound Musculoskeletal: Normal Range of Motion Extremities: Present: upper extr. pulses, lower extr. pulses. Absent: edema - Labs and Meds Coagulation 10/31/19 Range/Units 07:39 PT 13.3 (12.2-14.9) Sec. INR 1.00 (0.87-1.13) CBC 10/31/19 Range/Units 07:39 WBC 4.7 (4.5-11.0) K/mm3 RBC 5.20 H (3.65-5.03) M/mm3 Hgb 15.7 H (11.8-15.2) gm/dl Hct 45.8 H (35.5-45.6) % Plt Count 224 (140-440) K/mm3 Lymph # 1.8 (1.2-5.4) K/mm3 [place] # 0.5 (0.0-0.8) K/mm3 Eos # 0.2 (0.0-0.4) K/mm3 Baso # 0.0 (0.0-0.1) K/mm3 Comprehensive Metabolic Panel 10/31/19 Range/Units 07:39 Sodium 139 (137-145) mmol/L Potassium 4.3 (3.6-5.0) mmol/L Chloride 102.2 (98-107) mmol/L Carbon Dioxide 27 (22-30) mmol/L BUN 14 (9-20) mg/dL Creatinine 1.0 (0.8-1.3) mg/dL Glucose 112 H (75-100) mg/dL Calcium 9.7 (8.4-10.2) mg/dL - Imaging and Cardiology EKG: report reviewed, image reviewed Pharmacologic stress test: report reviewed (10/29/2019 - medium size, partially reversible inferior and inferoapical defect; normal LV systolic fxn w/no significant wall motion abnormalities; EF 63%; findings suggest a small area of prior infarction with mod residual ischemia in the RCA territory) Echo: report reviewed (10/28/2019 - EF 55-60%, mild LVH, trace TR, trace MR) Cardiac cath: pending - Telemetry EKG Rhythm: Sinus Rhythm - EKG Sinus rhythms and dysrhythmias: sinus rhythm
--- NOTE | 2019-10-31 10:32 | Discharge Summary ---
Providers - Providers Date of Admission: 10/31/19 07:57 Date of discharge: 10/31/19 Attending physician: DANIELE SABILLON 10/28/19 07:42 Consult to Physician [CONS] Urgent Comment: Consulting Provider: EL MARVIN Physician Instructions: Reason For Exam: aifb w rvr, tia 10/31/19 09:28 Consult to Cardiac Rehabilitation [CONS] Routine Reason For Exam: Cardiac Rehab Evaluation Primary care physician: HARPER FIERRO Hospitalization Condition: Serious Hospital course: 39-year-old male with history of hypertension comes in for chest pressure palpitations lightheadedness and generalized weakness. This is been going on for since a.m. Patient also had slurred speech facial droop and right arm numbness but no weakness week ago when he went to [place]. Review seek any medical attention. No diaphoresis. No shortness of breath. Chest pressure is about 4 on a scale of 1-10. No radiation. No prior episodes of chest pressure. 10/28 patient is alert and oriented and not in any distress. He offers no specific complaints. Denies any chest pain or shortness of breath at this time. Lab results reviewed. Cardiology note and stress test results reviewed Patient is scheduled for LHC on Sunday 10/29 patient is alert and oriented and offers no specific complaints, denies chest pain or shortness of breath Cardiology note reviewed Scheduled for left heart catheterization tomorrow 10/30. Patient had a LHC showed no obstructive lesion. Patient has been cleared from cardiology standpoint for discharge. Patient will be on aspirin and metoprolol and he will follow-up with psychology fellow in the office. He also need to have sleep study at home as outpatient Disposition: DC-01 TO HOME OR SELFCARE Core Measure Documentation - Palliative Care Palliative Care/ Comfort Measures: Not Applicable - Core Measures Any of the following diagnoses?: none Exam - Constitutional Vitals: Temp Pulse Resp BP Pulse Ox 97.7 F 71 20 130/79 94 10/31/19 07:30 10/31/19 07:30 10/31/19 07:30 10/31/19 07:30 10/31/19 07:30 General appearance: Present: no acute distress, well-nourished - EENT Eyes: Present: PERRL ENT: hearing intact, clear oral mucosa - Neck Neck: Present: supple, normal ROM - Respiratory Respiratory effort: normal Respiratory: bilateral: CTA - Cardiovascular Heart Sounds: Present: S1 & S2. Absent: rub, click - Extremities Extremities: pulses symmetrical, No edema Peripheral Pulses: within normal limits - Abdominal General gastrointestinal: Present: soft, non-tender, non-distended, normal bowel sounds Male genitourinary: Present: normal - Integumentary Integumentary: Present: clear, warm, dry - Musculoskeletal Musculoskeletal: gait normal, strength equal bilaterally - Psychiatric Psychiatric: appropriate mood/affect, intact judgment & insight - Neurologic Neurologic: CNII-XII intact, moves all extremities Plan Additional Instructions: Continue aspirin and metoprolol. Follow-up with cardiology in the office in 1 to 2 weeks. Follow-up with carburetor repairer for sleep study to evaluate for obstructive sleep apnea. Follow up with: PRIMARY CARE, [Referring] - 3-5 Days EL MARVIN MD [Staff Physician] - 7 Days Prescriptions: Aspirin [Aspirin BABY CHEW TAB] 81 mg PO QDAY #60 tab.chew Metoprolol Xl [Metoprolol SUCCINATE ER TAB] 25 mg PO QDAY #120 tablet
[2019-10-31] MEDS: ACETAMINOPHEN 325 MG TAB PO PRN (13:36)
[2019-10-31] MEDS: FAMOTIDINE 20 MG TAB PO SCH (13:36)
[2019-10-31] MEDS: METOPROLOL SUCCINATE XL 25 MG TAB PO SCH (13:36)
[2019-10-31 13:39] VITALS: BP 123/81
--- NOTE | 2019-10-31 14:07 | Cardiac Catherization Report ---
LEFT HEART CATHETERIZATION CLINICAL INFORMATION: Chest pain, abnormal stress test and history of paroxysmal AFib. Procedure was done via the right radial artery, sterile technique, local anesthesia, 6-[place] radial sheath inserted. Left system engaged with JL3.5 catheter, left main is large and patent, bifurcates into large LAD, wraparound LAD is patent. Diagonal 1, diagonal 2 medium caliber and patent. Circumflex is a large dominant vessel, patent AV groove. OM1, OM2 and OM3 are medium caliber vessels are patent. LPDA is a small caliber vessel, patent. RCA engaged with JR4, is a small nondominant vessel, patent. LV gram done in TOM and JAMES view shows normal LV function, EF 55-60%. LV is 116/22 mmHg, LVEDP 22 mmHg. Aortic is 117/79. No gradient across the aortic valve on pullback. The patient was done with moderate sedation, started at 9:13 and finished at 9:29, just 16 minutes of moderate sedation. SUMMARY: Normal coronaries, left dominant system, normal LV function, noncardiac chest pain probably secondary to AFib with RVR. JOB# [id number] MARYAM/NTS
--- NOTE | 2019-10-31 16:34 | Vascular Lab Report ---
. VL carotid duplex BILAT INDICATION / CLINICAL INFORMATION: TIA COMPARISON: None available. FINDINGS: RIGHT CAROTID: - CCA velocity: 96 cm/sec. - ICA peak systolic velocity: 66 cm/sec. - ICA/CCA PSV Ratio: Less than 2 Right Vertebral Artery: Antegrade flow. LEFT CAROTID: - CCA velocity: 102 cm/sec. - ICA peak systolic velocity: 67 cm/sec. - ICA/CCA PSV Ratio: Less than 2 Left Vertebral Artery: Antegrade flow. IMPRESSION: 1. Atherosclerosis without occlusion or hemodynamically significant stenosis of the bilateral carotid arteries. Velocity criteria are extrapolated from diameter data as defined by the Society of Radiologists in Ul trasound Consensus Conference, Radiology 2003; 229;340-346. NO STENOSIS (NORMAL) * Plaque = none; ICA PSV < 125 cm/sec; ICA/CCA PSV Ratio < 2.0 <50% STENOSIS * Plaque < 50%; ICA PSV < 125 cm/sec; ICA/CCA PSV Ratio < 2.0 50-69% STENOSIS * Plaque > 50%; ICA PSV = 125-230 cm/sec; ICA/CCA PSV Ratio = 2.0-4.0 >70% BUT <100% STENOSIS * Plaque > 50%; ICA PSV < 230 cm/sec; ICA/CCA PSV Ratio > 4.0 NEAR OCCLUSION * Plaque = visible lumen; ICA PSV = high/low/none; ICA/CCA PSV Ratio = variable TOTAL OCCLUSION * Plaque = no lumen; ICA PSV = none; ICA/CCA PSV Ratio = N/A Signer Name: Jan Mckeon MD Signed: 10/31/2019 4:29 PM Workstation Name: [id number]
== END 2019-10-31 16:00 | disposition home or self-care (01) | DRG 287 ==
LOC: ED 07:18 → 4A 08:55 → OBSVTOIN 10-31 07:57
PROVIDERS: ADMIT Internal Medicine; ATTEND Internal Medicine
PROC: 4A023N7 Measurement of Cardiac Sampling and Pressure, Left Heart, Percutaneous Approach (ICD-10-PCS; principal; 2019-10-31)
PROC: B2151ZZ Fluoroscopy of Left Heart using Low Osmolar Contrast (ICD-10-PCS; 2019-10-31)
PROC: B2111ZZ Fluoroscopy of Multiple Coronary Arteries using Low Osmolar Contrast (ICD-10-PCS; 2019-10-31)
DX: I48.0 Paroxysmal atrial fibrillation (principal); G45.9 Transient cerebral ischemic attack, unspecified; I10 Essential (primary) hypertension; G47.33 Obstructive sleep apnea (adult) (pediatric); E66.9 Obesity, unspecified; Z86.19 Personal history of other infectious and parasitic diseases; Z68.35 Body mass index [BMI] 35.0-35.9, adult; Z88.0 Allergy status to penicillin; Z91.018 Allergy to other foods
CPT/HCPCS: 36415; 70450; 70551; 71045; 78452; 80048; 80053; 82550; 82962; 83036; 83735; 84443; 84484; 85025; 85379; 85610; 85730; 93005; 93017; 93306; 93458; 93880; G0378; A9502; C1894; J1200; J1644; J1650; J2250; J2765; J2785; J3010; J7030; J7040; J7042; J7120; Q9967